=== PATIENT | female | born 1970 | race Caucasian/White ===

== ENCOUNTER → 2018-01-13 | Outpatient (CLI) | payer BC | END | disposition home or self-care (01) | LOC: US 09:58 | DX: M79.605 Pain in left leg (principal); M79.89 Other specified soft tissue disorders; E03.9 Hypothyroidism, unspecified | CPT/HCPCS: 93971 ==

== ENCOUNTER → 2018-01-19 | Outpatient (CLI) | payer BC | END | disposition home or self-care (01) | LOC: KCIC MRI 07:41 | DX: M54.42 Lumbago with sciatica, left side (principal); M54.16 Radiculopathy, lumbar region | CPT/HCPCS: 72148 ==

== ENCOUNTER → 2018-01-26 | Outpatient (CLI) | payer BC ==
[2018-01-26 10:20] LABS: BASO # 0.1 x10^3/uL (0.0-0.2); BASO % 1 % (0-3); EOS % 0 % (0-3); HEMATOCRIT 39.3 % (36.0-47.0); HEMOGLOBIN 13.6 g/dL (12.0-15.5); LYMPH # 1.3 x10^3/uL (1.0-4.8); LYMPH % 12 % (24-48); MEAN CORPUSCULAR HEMOGLOBIN 32 pg (25-35); MEAN CORPUSCULAR HGB CONC 35 g/dL (31-37); MEAN CORPUSCULAR VOLUME 91 fL (79-100); MONO # 0.3 x10^3/uL (0.0-1.1); MONO % 3 % (0-9); NEUT # 9.7 x10^3uL (1.8-7.7); NEUT % 85 % (31-73); PLATELET COUNT 467 x10^3/uL (140-400); RED CELL DISTRIBUTION WIDTH 14.1 % (11.5-14.5); WHITE BLOOD COUNT 11.4 x10^3/uL (4.0-11.0)
[2018-01-26 10:22] LABS: ADD MAN DIFF? YES
[2018-01-26 10:37] LABS: ALK PHOS 100 U/L (46-116); ALT (SGPT) 48 U/L (14-59); ANION GAP 10 (6-14); AST (SGOT) 21 U/L (15-37); BLOOD UREA NITROGEN 10 mg/dL (7-20); BUN/CREATININE RATIO 13 (6-20); CALCIUM 9.3 mg/dL (8.5-10.1); CARBON DIOXIDE 24 mmol/L (21-32); CHLORIDE 103 mmol/L (98-107); CREATININE 0.8 mg/dL (0.6-1.0); GFR 76.9; GLUCOSE 121 mg/dL (70-99); POTASSIUM 4.1 mmol/L (3.5-5.1); SODIUM 137 mmol/L (136-145); TOTAL BILIRUBIN 0.2 mg/dL (0.2-1.0); TOTAL PROTEIN 8.1 g/dL (6.4-8.2)
[2018-01-26 12:08] LABS: % BANDS 5 % (0-9); % LYMPHS 15 % (24-48); % MONOS 2 % (0-10); % SEGS 78 % (35-66); PLT ESTIMATE INCREASED (ADEQUATE)
[2018-01-27 22:13] LABS: MRSA BY PCR Negative (Negative)
== END | disposition home or self-care (01) ==
LOC: SURGPAT 09:31
DX: Z01.818 Encounter for other preprocedural examination (principal); M51.17 Intervertebral disc disorders with radiculopathy, lumbosacral region; I10 Essential (primary) hypertension; E03.9 Hypothyroidism, unspecified
CPT/HCPCS: 36415; 80053; 85007; 85025; 87641

== ENCOUNTER 2018-01-30 08:13 | Day surgery (SDC) | payer BC ==
[~2018-01-30 08:13] MED LIST: LIDOCAINE 1% PF 2 ML VIAL. ID; ONDANSETRON PF 4 MG/2 ML VIAL. IV; fentaNYL PF VIAL 100 MCG/2 ML VIAL IV
[2018-01-30] MEDS: IV RINGERS,LACTATED 1000ML 1,000 ML IV (08:42)
[2018-01-30] MEDS ORDERED: ROCURONIUM 50 MG/5 ML VIAL. (10:15)
[2018-01-30] MEDS ORDERED: fentaNYL PF VIAL 100 MCG/2 ML VIAL ×2 (10:15→12:59)
[2018-01-30] MEDS ORDERED: NEOSTIGMINE METHYLSULFATE 5 MG/5 ML SYRINGE. (10:15)
[2018-01-30] MEDS ORDERED: REMIFENTANIL 1 MG VIAL. IV ×2 (10:16→12:21)
[2018-01-30] MEDS ORDERED: GLYCOPYRROLATE 1 MG/5 ML VIAL. (10:16)
[2018-01-30] MEDS ORDERED: MIDAZOLAM HCL/PF 2 MG/2 ML VIAL. (10:16)
[2018-01-30] MEDS ORDERED: DEXAMETHASONE SOD PHOS 20 MG/5 ML VIAL. (10:18)
[2018-01-30] MEDS ORDERED: ONDANSETRON PF 4 MG/2 ML VIAL. ×2 (10:18)
[2018-01-30] MEDS ORDERED: PROPOFOL 50 ML IV (10:18)
[2018-01-30] MEDS ORDERED: LIDOCAINE 2% PF Vial for OR 5 ML VIAL. (10:18)
[2018-01-30] MEDS ORDERED: PROPOFOL 20 ML IV ×2 (10:18→12:19)
[2018-01-30] MEDS ORDERED: DESFLURANE > 120 MINUTES IH (10:21)
[2018-01-30] MEDS: fentaNYL PF VIAL 100 MCG/2 ML VIAL IV ×3 (10:25→13:18)
[2018-01-30] MEDS: BACITRACIN 50,000 UNIT in IV NORMAL SALINE 1000ML BAG 1,000 ML IRR (11:28)
[2018-01-30] MEDS: BUPIVAC MPF-EPI 0.5%-1:200000 30 ML VIAL. INJ (11:28)
[2018-01-30] MEDS: KETOROLAC 60 MG/2 ML INJ FOR OR. (11:28)
[2018-01-30] MEDS: GELATIN SPONGE SIZE 100. (11:28)
[2018-01-30] MEDS: THROMBIN TOPICAL 20,000 UNIT SPRAY.SYRN KIT TP (11:28)
[2018-01-30] MEDS ORDERED: PROCHLORPERAZINE 10 MG/2 ML VIAL. (12:59)
[2018-01-30] MEDS: PROCHLORPERAZINE 10 MG/2 ML VIAL. IV (13:04)
[2018-01-30] MEDS ORDERED: MORPHINE SULFATE 2 MG/ML DISP.SYRIN. (13:30)
[2018-01-30] MEDS: MORPHINE SULFATE 2 MG/ML DISP.SYRIN. IV ×2 (13:31→13:41)
[2018-01-30] MEDS: oxyCODONE/APAP 7.5/325 1 TAB TABLET PO (14:02)
[2018-01-31] MEDS ORDERED: ceFAZolin 2GM PREMIX 2 GM/50 ML BAG IV (08:00)
== END 2018-01-30 15:04 | disposition home or self-care (01) ==
LOC: SURG 08:13
DX: M51.16 Intervertebral disc disorders with radiculopathy, lumbar region (principal); I10 Essential (primary) hypertension; E03.9 Hypothyroidism, unspecified; Z87.442 Personal history of urinary calculi; Z79.899 Other long term (current) drug therapy; Z82.49 Family history of ischemic heart disease and other diseases of the circulatory system; Z72.89 Other problems related to lifestyle; Z98.890 Other specified postprocedural states
CPT/HCPCS: 63030; 76000; 88304; 88311; 97161-GP; A7015; J0690; J0780; J1100; J1885; J2001; J2250; J2270; J2405; J2704; J2710; J3010; J3490; J7030; J7120